=== PATIENT | male | born 1990 | race Caucasian/White ===

== ENCOUNTER 2019-10-26 08:22 | Emergency (ER) | payer OTHER, SELFPAY ==
[2019-10-26 08:33] VITALS: BP 134/79; PULSE 67; RESP 16; TEMP 36.7; O2SAT 99
--- NOTE | 2019-10-26 08:54 | ED.BACK ---
HPI - Back Pain/Injury General Chief Complaint: Back Pain/Injury Stated Complaint: Back Pain Time Seen by Provider: 10/26/19 08:51 Source: patient and RN notes reviewed Mode of arrival: ambulatory Limitations: no limitations History of Present Illness HPI Narrative: Patient presents today complaining of mid back pain x2 weeks, worse over the last 2 days. Pain initially started after he picked up a child at home and felt a pull in his back. The pain had been intermittent, but 2 days ago he picked up his other child and worsened the symptoms. Denies radiation of the pain. Denies numbness or tingling in the extremities. Denies any loss of bowel or bladder control. Currently rates his pain 3/10 at rest, which increases to 7/10 with movement or bending. He has been taking ibuprofen and using icy hot without relief. No history of chronic back issues MD elicited complaint: back pain Related Data Allergies Allergy/AdvReac Type Severity Reaction Status Date / Time Penicillins Allergy Unknown Rash Verified 10/26/19 08:42 Review of Systems Review of Systems: Narrative: CONSTITUTIONAL: Denies body aches, fever, chills, or sweats. EYES: Denies visual changes, redness, or discharge. ENT: Denies rhinorrhea, congestion, sore throat, or otalgia. CARDIOVASCULAR: Denies chest pain, palpitations, or edema. RESPIRATORY: Denies cough or dyspnea. GASTROINTESTINAL: Denies abdominal pain, nausea, vomiting, or diarrhea. GENITOURINARY: Denies dysuria or hematuria. SKIN: Denies rash, itching, or wounds. MUSCULOSKELETAL: Denies joint pain, or myalgia.+ Mid back pain NEUROLOGIC: Denies headache, numbness, tingling, or weakness. PSYCH: Denies depression or anxiety. [facility] Family History Family History (Updated 04/26/14 @ 07:13 by DOCTOR UNKNOWN) Grandparent Family history of multiple sclerosis Hypertension Family history of malignant neoplasm of brain Acute myocardial infarction Mother Acute myocardial infarction Other Family history of cardiovascular disease Social History Social History Smoking status: Never smoker Second hand tobacco smoke exposure: No Smoking end date: 08/30/10 Alcohol intake: current Gender identity (if verbalized by the patient): Male Comments At time of signature, I have reviewed and agree with nursing past medical, surgical, social and family history unless otherwise noted. Please see nursing chart for further information. There is no relevant family history pertinent to the presenting complaint Exam Narrative: Exam Narrative: GENERAL: Well-appearing, well-nourished, and in no acute distress. HEAD: Normocephalic, atraumatic. EYES: EOMI. No redness or drainage. Conjunctivae normal. ENT: Mucous membranes pink and moist. NECK: Normal AROM. CHEST: No respiratory distress. Clear to auscultation. HEART: Regular rate and rhythm. No murmur appreciated. Normal peripheral pulses. MUSCULOSKELETAL: Left lower thoracic paraspinal muscle tenderness and palpable muscle spasm. Slight tenderness on the right. Distal sensation intact. Capillary refill normal. Foot push and pulls equal and strong. Normal saddle sensation. EXTREMITIES: Normal range of motion. No edema. SKIN: Warm, dry, no rash. NEURO: No focal deficits. Alert and oriented x3. Gait steady. PSYCH: Normal affect. No signs of depression or anxiety. Course Vital Signs Vital signs: Vital Signs Temperature 98.0 F 10/26/19 08:33 Pulse Rate 67 10/26/19 08:33 Respiratory Rate 16 10/26/19 08:33 Blood Pressure 134/79 10/26/19 08:33 Pulse Oximetry 99 10/26/19 08:33 Temperature 98.0 F 10/26/19 08:33 Pulse Rate 67 10/26/19 08:33 Respiratory Rate 16 10/26/19 08:33 Blood Pressure 134/79 10/26/19 08:33 Pulse Oximetry 99 10/26/19 08:33 Reviewed. Pt has been instructed to follow up with his PCP regarding his elevated blood pressure today. MDM - Back Pain/Injury Differential Diagnosis Differential diag
== END 2019-10-26 09:03 | disposition home or self-care (01) ==
PROVIDERS: Emergency Provider Nurse Practitioner; PCP Family Medicine Adolescent Medicine
DX: S29.012A Strain of muscle and tendon of back wall of thorax, initial encounter (principal); X50.9XXA Other and unspecified overexertion or strenuous movements or postures, initial encounter
CPT/HCPCS: 99213; G0463

== ENCOUNTER 2020-10-06 15:59 | Emergency (ER) | payer OTHER, SELFPAY ==
--- NOTE | ~2020-10-06 | XR_ITS ---
[id number] INDICATION: Neck pain TECHNIQUE: 4 views of the cervical spine. FINDINGS: No prior studies for comparison. The cervical spine is visualized to the cervicothoracic junction. There is straightening of cervical lordosis, likely due to muscle spasm or patient positioning. There is no prevertebral soft tissue swe lling, listhesis, or loss of vertebral body height. Intervertebral disc spaces are normal. The osse ous central canal is patent. No displaced cervical spine fractures are identified. IMPRESSION: 1. No acute osseous abnormality of the cervical spine. Reviewed, dictated and finalized at location A. [employer]
[2020-10-06 16:10] VITALS: BP 137/82; PULSE 96; RESP 20; TEMP 36; O2SAT 100
--- NOTE | 2020-10-06 16:48 | ED.NECK ---
HPI - Neck Pain/Injury General Chief Complaint: Neck Pain/Injury Stated Complaint: shoulder/back pain Time Seen by Provider: 10/06/20 16:30 Source: patient and RN notes reviewed Mode of arrival: ambulatory Limitations: no limitations History of Present Illness HPI Narrative: 30 year old male who presents to [facility] with complaints of pain to his neck and his upper left back to shoulder blade since yesterday. 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 Patient states pain awoke him today at 0400 with increase in his discomfort. He reports that he has been taking Tylenol and Ibuprofen, application of heat and icy hot to his neck with no improvement in his discomfort. 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 MD complaint: neck pain and other (upper left back) Onset (ago): day(s) (1) Radiation: upper back (left and neck) Quality: aching Duration: constant Context: unknown Associated symptoms: none Treatments prior to arrival: ibuprofen, heat therapy and other (topical ointment) Related Data Allergies Allergy/AdvReac Type Severity Reaction Status Date / Time Penicillins Allergy Unknown Rash Verified 10/06/20 16:15 Review of Systems Review of Systems: Narrative: CONSTITUTIONAL: Denies fever, chills, or sweats. EYES: Denies visual changes, redness, or discharge. ENT: Denies rhinorrhea, congestion, sore throat, or otalgia. CARDIOVASCULAR: Denies chest pain, palpitations, or edema. RESPIRATORY: Denies cough or dyspnea. GASTROINTESTINAL: Denies abdominal pain, nausea, vomiting, or diarrhea. GENITOURINARY: Denies dysuria or hematuria. SKIN: Denies rash or itching. MUSCULOSKELETAL: neck pain and upper left back pain,no joint pain, or myalgia. NEUROLOGIC: Denies headache, numbness, or weakness. PSYCHIATRIC: Denies anxiety or depression. All systems reviewed & are unremarkable except as noted in HPI and below PMFSH Past Medical History Medical History (Updated 10/06/20 @ 17:49 by Angelina Ervin NP) Asthma Surgical History Surgical History (Updated 10/06/20 @ 17:51 by Angelina Ervin NP) Hx of cholecystectomy Family History Family History (Updated 10/06/20 @ 17:53 by Angelina Ervin NP) Grandparent Family history of multiple sclerosis Hypertension Family history of malignant neoplasm of brain Acute myocardial infarction Mother Acute myocardial infarction Hypertension Father Family history of cardiovascular disease Hypertension Social History Social History (Updated 10/06/20 @ 17:54 by Angelina Ervin NP) Smoking status: Never smoker Smokeless tobacco user: chewing tobacco Second hand tobacco smoke exposure: No Alcohol intake: current Living arrangements: with family Gender identity (if verbalized by the patient): Male Comments At time of signature, agree with nursing past medical, surgical, social and family history. There is no relevant family history pertinent to the presenting complaint Exam Narrative: Exam Narrative: GENERAL: Well-appearing, well-nourished, and in some acute distress. HEAD: Normocephalic, atraumatic. EYES: PERRLA and EOMI. ENT: Nares clear, no rhinorrhea or epistaxis. Mucous membranes moist. NECK: Supple.no lymphadenopathy, increase pain with movement, radiation of pain from his left neck to his left scapula region, denies any tingling or numbness to his extremities, full ROM of upper extremities, strong pulses upper extremities. CHEST: Clear to auscultation. No respiratory distress.SAO2 100% on room air HEART: Regular rate and rhythm. No murmur heard. Normal peripheral pulses. ABDOMEN: Soft, nontender, nondistended, normal active bowel sounds. EXTREMITIES: Normal range of motion. No edema. SKIN: Warm, dry, no rash. NEURO: No focal deficits. Alert and orie
== END 2020-10-06 17:12 | disposition home or self-care (01) ==
PROVIDERS: Emergency Provider Registered Nurse; PCP Family Medicine Adolescent Medicine
DX: S16.1XXA Strain of muscle, fascia and tendon at neck level, initial encounter (principal); X58.XXXA Exposure to other specified factors, initial encounter; J45.909 Unspecified asthma, uncomplicated
CPT/HCPCS: 72040; 99213; G0463